=== PATIENT | male | born 1965 | race Caucasian/White ===

== ENCOUNTER → 2016-12-12 | Outpatient (CLI) | payer BC ==
[~2016-12-12] MED LIST: IOHEXOL 350 MG/ML 100ml INJECTION ONE; NORMAL SALINE 100 ML ONE; No Home Medications; SALINE FLUSH 10ml SYRINGE ONE
--- NOTE | 2016-12-12 15:31 | DI ---
Indication: ITS.REASON: R91.1 PULMONARY NODULE; R07.89 CHEST PAIN PROCEDURE: CTA AORTA: Encounter: Initial Comparison: Chest CT dated July 23, 2016 Technique: Axial CT angiographic imaging of the chest, abdomen and pelvis was performed before and after the administration of intravenous contrast. Coronal and sagittal MIP reconstructed images were created and reviewed. Three-dimensional surface shaded volume rendered imaging of the aorta and arterial vasculature was created by the technologist on a dedicated workstation under the direction of the interpreting radiologist and reviewed. Automated Exposure Control and Iterative Reconstruction dose reducing techniques were utilized. Contrast: 120 mL Omnipaque 350 Findings: CT angiogram of the chest with and without contrast: Findings: Noncontrast images show no evidence of intramural hematoma. Postcontrast images show no evidence of aortic aneurysm or dissection. Great vessels are normal. Central pulmonary arteries are normal in appearance. Heart size is normal. No pericardial effusion. Small mediastinal nodes are increased in number but not pathologically enlarged by CT criteria. Appearance is stable from the comparison exam. Lung windows show a stable area of scarring in the right apex measuring 5 mm on axial image #14. Stable region of presumed scarring in the lingula on axial image #70. Noncalcified lingular nodule seen on image #60 is unchanged at 9 mm in size. Lungs are otherwise clear. No pleural effusion or pneumothorax. No focal consolidative pneumonia. The central airways are patent. CT angiogram of the abdomen and pelvis with and without contrast: Findings: The arterial phase liver is grossly normal. The gallbladder is normal. The spleen, pancreas and adrenal glands are normal. Kidneys are normal. Abdominal aorta is normal in caliber without evidence of aneurysm or dissection. The celiac, SMA and PJ are normal. Hepatic arterial anatomy is conventional. Bilateral renal arteries are normal. There are two left renal arteries. The common, internal and external iliac arteries are normal bilaterally. The visualized bladder, small and large bowel are within normal limits. No adenopathy seen in the abdomen or pelvis. The appendix is normal. Bone windows show probable bone island in the left iliac bone with osseous bridging and degenerative change in the sacroiliac joints. Degenerative change in the lumbar spine. Postoperative changes also noted in the lumbar region with fusion of the L2 and L3 vertebra. Impression: CT angiogram of the chest: No evidence of acute aortic syndrome or acute disease process. Stable 9 mm left upper lobe pulmonary nodule. Recommend follow-up noncontrast chest CT in 12 months to document continued stability. CT angiogram of the abdomen and pelvis: Normal appearance of the abdominal aorta and its major branches. No acute abnormality seen. .
== END ==
LOC: IMA 14:39
PROVIDERS: ATTEND Family Medicine
DX: R91.1 Solitary pulmonary nodule (principal); R07.89 Other chest pain
CPT/HCPCS: 71275; 74175; J7050; Q9967